=== PATIENT | male | born 1995 | race Caucasian/White ===

== ENCOUNTER → 2021-09-09 01:27 | Outpatient (CLI) | payer BC, SELFPAY ==
[2021-09-09 11:47] LABS: Influenza A QL RT-PCR Negative (Negative); Influenza B QL RT-PCR Negative (Negative); SARS-CoV-2 RNA PCR Negative
== END ==
PROVIDERS: PCP Family Medicine; Visit Provider Family Medicine
DX: R68.89 Other general symptoms and signs (principal); Z20.822 Contact with and (suspected) exposure to COVID-19
CPT/HCPCS: 87502; C9803; U0003; U0005

== ENCOUNTER 2021-11-04 11:46 | Emergency (ER) | payer BC, SELFPAY ==
--- NOTE | 2021-11-04 12:02 | ED.FEVER ---
HPI - Fever General Chief Complaint: Fever Stated Complaint: fever Time Seen by Provider: 11/04/21 12:02 Source: patient and RN notes reviewed Mode of arrival: ambulatory Limitations: no limitations History of Present Illness HPI Narrative: 26-year-old COVID-positive male presented for complaint of fever, cough and decreased focus after testing positive for COVID last night. Endorses his symptoms started yesterday. Today fever of 104 at home, nausea. He is not boosted for COVID. He has not taken anything for his fever. He denies shortness of breath, wheezing, vomiting or diarrhea. States he contacted his PCP who sent Rx Paxlovid which he has not started. Related Data Allergies Allergy/AdvReac Type Severity Reaction Status Date / Time No Known Allergies Allergy Verified 11/04/21 12:10 Review of Systems Review of Systems: CONSTITUTIONAL: Endorses malaise, chills, sweats, fever EYES: Denies visual changes, redness, or discharge ENT: Reports rhinorrhea, congestion, sinus pain CARDIOVASCULAR: Denies chest pain, palpitations, edema RESPIRATORY: Reports cough, post nasal drainage. Denies dyspnea GASTROINTESTINAL: Denies abdominal pain, vomiting, diarrhea SKIN: Denies rash or itching MUSCULOSKELETAL: Endorses myalgia PMFSH Family History Family History Mother , Age 56 Price's disease Social History Social History Tobacco type: smokeless tobacco Smokeless tobacco user: chewing tobacco Second hand tobacco smoke exposure: No Alcohol intake: current Alcohol use details: Drinks about 1-2 Beers a month Substance use: never Exam Narrative: GENERAL: Ill-appearing, nontoxic EYES: conjunctivae clear ENT: Mucous membranes moist. TM pearly delaney with dull light reflex bilaterally; no tragal tenderness. CHEST: Clear to auscultation, breath sounds equal. No wheezing, rhonchi, rales, or stridor. No respiratory distress, speaks in full sentences. HEART: Regular rate and rhythm. No murmur heard. SKIN: Warm, dry, no rash. NEURO: Alert and oriented x3. PSYCH: Normal mood and affect Course Course Emergency Course: Patient is aware of diagnosis, understands and agrees to treatment plan. Anticipatory guidance given. Patient agrees to follow-up as directed and is aware of reasons to seek care at the emergency department. Portions of this record may have been created with voice recognition software Level of Care: Express Care Visit Vital Signs Vital signs: Vital Signs Temperature 104.8 F H 11/04/21 12:06 Pulse Rate 106 H 11/04/21 12:06 Respiratory Rate 24 H 11/04/21 12:06 Blood Pressure 125/66 11/04/21 12:06 Pulse Oximetry 100 11/04/21 12:06 Oxygen Delivery Room Air 11/04/21 12:06 Temperature 104.5 F H 11/04/21 12:38 Pulse Rate 106 H 11/04/21 12:06 Respiratory Rate 24 H 11/04/21 12:06 Blood Pressure 125/66 11/04/21 12:06 Pulse Oximetry 100 11/04/21 12:06 Oxygen Delivery Room Air 11/04/21 12:06 reviewed MDM - Fever MDM Narrative Medical decision making narrative: Pt is positive for covid, has Rx for Paxlovid. Motrin and Tylenol give for fever. Pt reassessed, temp improved to 100.7, pt reports improvement. Advised supportive measures and signs/symptoms to go to the ER. Pt is stable and appropriate for outpt treatment and f/u. Differential Diagnosis Differential diagnosis: Likely viral infection Discharge Plan Discharge Clinical Impression: Viral infection Patient Disposition: Home, Self-Care Condition: Stable Instructions: COVID-19 (Coronavirus Disease 2019) (ED) Additional Instructions: You tested positive for covid at home The following recommendations have been made by the CDC and local Health Departments, regarding COVID-19: -Those individuals with mild cases of COVID-19 can generally be discontinued from isolation 5
[2021-11-04 12:06] VITALS: BP 125/66; PULSE 106; RESP 24; TEMP 40.4; O2SAT 100
[2021-11-04] MEDS: IBUPROFEN 400 MG TABLET 800 MG PO (12:13)
[2021-11-04] MEDS: ACETAMINOPHEN 500 MG TABLET 1000 MG PO (12:13)
[2021-11-04 12:38] VITALS: TEMP 40.3
[2021-11-04 13:23] VITALS: BP 117/75; PULSE 100; RESP 18; TEMP 38.2; O2SAT 100
[2021-11-04 13:26] VITALS: TEMP 38.2
== END 2021-11-04 13:40 | disposition home or self-care (01) ==
PROVIDERS: Emergency Provider Nurse Practitioner Family; PCP Family Medicine
DX: B34.9 Viral infection, unspecified (principal); F17.220 Nicotine dependence, chewing tobacco, uncomplicated
CPT/HCPCS: 99213; A9270; G0463

== ENCOUNTER 2022-02-12 14:00 | Outpatient (CLI) | payer BC, SELFPAY ==
[2022-02-12 15:10] LABS: SARS-CoV-2 RNA PCR Negative
== END 2022-02-12 14:01 | disposition home or self-care (01) ==
LOC: ANHLAB 14:02
PROVIDERS: PCP Family Medicine; Visit Provider Family Medicine
DX: R68.89 Other general symptoms and signs (principal); Z20.822 Contact with and (suspected) exposure to COVID-19
CPT/HCPCS: U0003; U0005

== ENCOUNTER 2022-12-11 08:46 | Outpatient (CLI) | payer BC, SELFPAY ==
[2022-12-11 17:06] LABS: Basophils Absolute Auto 0.1 K/mm3 (0.0-0.1); Basophils Percent Auto 0.8 % (0.2-1.2); Eosinophils Absolute Auto 0.5 K/mm3 (0-0.3); Eosinophils Percent Auto 5.9 % (0-4.4); Hematocrit 47.9 % (42.0-52.0); Hemoglobin 15.5 g/dL (14.0-18.0); Immature Granulocyte Absolute 0.03 K/mm3 (0.00-0.031); Immature Granulocyte Percent A 0.3 % (0-0.5); Lymphocytes Absolute Auto 2.07 K/mm3 (0.9-3.2); Mean Corpuscular HGB Conc 32.4 g/dl (32-36); Mean Corpuscular Hemoglobin 28.5 pg (26-34); Mean Corpuscular Volume 88.1 fl (80-100); Monocytes Absolute Auto 0.7 K/mm3 (0.1-0.6); Monocytes Percent Auto 7.8 % (2.6-8.5); Neutrophils Absolute Auto 5.3 K/mm3 (1.3-6.7); Neutrophils Percent Auto 61.2 % (45.5-73.1); Platelet Count Result 258 k/mm3 (150-375); Red Blood Count 5.44 M/mm3 (4.6-6.20); Red Cell Distribution Width 12.5 % (11.5-14.5); White Blood Count 8.6 K/mm3 (4.5-10.0)
[2022-12-11 17:14] LABS: Alanine Aminotransferase 26 U/L (6-50); Albumin Level 4.5 g/dL (3.5-5.1); Alkaline Phosphatase 64 U/L (38-126); Anion Gap 3 mmol/L (8-16); Aspartate Amino Transferase 36 U/L (17-59); Bilirubin,Total 0.5 mg/dL (0.2-1.3); Blood Urea Nitrogen 11 mg/dL (9-20); Calcium 9.6 mg/dL (8.4-10.2); Carbon Dioxide 33 mmol/L (22-30); Chloride 100 mmol/L (98-107); Estimated Glomerular Filt Rate > 60; Glucose 73 mg/dL (65-110); Potassium 4.7 mmol/L (3.4-5.0); Sodium 136 mmol/L (137-145)
== END 2022-12-11 08:47 | disposition home or self-care (01) ==
LOC: ANHGOSHLAB 08:47
PROVIDERS: PCP Family Medicine; Visit Provider Family Medicine
DX: R53.83 Other fatigue (principal); Z13.228 Encounter for screening for other metabolic disorders
CPT/HCPCS: 36415; 80053; 85025

== ENCOUNTER 2024-10-29 18:09 | Emergency (ER) | payer BC, SELFPAY ==
--- NOTE | ~2024-10-29 | XR_ITS ---
XR forearm LT 2V Ordering provider: CARLA Romero History: . struck by tree branch today . Comparison: None. FINDINGS: BONES: No acute fracture or dislocation. JOINT SPACES: Normal. SOFT TISSUES: Normal. IMPRESSION: No acute osseous abnormality left forearm. Reviewed, dictated and finalized at location A.
[2024-10-29 18:17] VITALS: BP 140/85; PULSE 100; RESP 16; TEMP 37.4; O2SAT 99
--- NOTE | 2024-10-29 18:47 | ED.UPPEXIN ---
HPI - Extremity Injury (Upper) General Chief Complaint: Extremity Injury, Upper Stated Complaint: INJURED L FOREARM Time Seen by Provider: 10/29/24 18:37 Source: patient and RN notes reviewed Mode of arrival: ambulatory Limitations: no limitations History of Present Illness HPI narrative: Patient presents today with an injury to his left forearm. Approximately 2 hours prior to arrival at home, a large tree branch fell and struck him in the left forearm. Reports some tingling to the wrist and hand. Currently rates his pain 7/10. No OTC treatment prior to arrival. Related Data Home Medications ?Medication ?Instructions ?Recorded ?Confirmed ?Last Taken ?Type bupropion HCl 300 mg 24 hr tablet, mg PO 05/24/24 05/24/24 Unknown History extended release Allergies Allergy/AdvReac Type Severity Reaction Status Date / Time No Known Allergies Allergy Verified 10/29/24 18:18 [facility] Family History Family History Mother , Age 56 [place]'s disease Social History Social History Smoking status: Never smoker Tobacco type: smokeless tobacco Smokeless tobacco user: chewing tobacco Second hand tobacco smoke exposure: No Alcohol intake: current Alcohol use details: Drinks about 1-2 Beers a month Substance use: never Lack of Transportation: No Lack of Food: Never True Current Housing: I Have Housing Concerned About Future Housing: No Difficulty Paying Gas/Electric Bills: No Difficulty Paying for Meds: No Currently Unemployed: No Education: Trade/Vocational Certificate Difficulty w/ Childcare or Family Care: No Comments At time of signature, I have reviewed and agree with nursing past medical, surgical, social and family history unless otherwise noted. Please see nursing chart for further information. There is no relevant family history pertinent to the presenting complaint Exam Narrative: GENERAL: Well-appearing, well-nourished, and in no acute distress. HEAD: Normocephalic, atraumatic. EYES: EOMI. No redness or drainage. Conjunctivae normal. ENT: Mucous membranes pink and moist. NECK: Normal AROM. CHEST: No respiratory distress. EXTREMITIES: Left arm: Tenderness to the radius with large hematoma to the mid forearm. No tenderness to entirety of the ulna. No tenderness to the hand. No snuffbox tenderness. No additional edema noted to the forearm, wrist, or hand. No deformity noted. Distal sensation intact in all 5 fingers. Capillary refill normal. Radial pulse normal. Pain to the forearm with range of motion of the wrist in all directions. SKIN: Warm, dry, no rash. Capillary refill normal. Normal skin turgor. NEURO: No focal deficits. Alert and oriented x3. Gait steady. PSYCH: Normal affect. No signs of depression or anxiety. Course Course Level of Care: Express Care Visit Vital Signs Vital signs: Vital Signs Temperature 99.3 F 10/29/24 18:17 Pulse Rate 100 10/29/24 18:17 Respiratory Rate 16 10/29/24 18:17 Blood Pressure 140/85 10/29/24 18:17 Pulse Oximetry 99 10/29/24 18:17 Temperature 99.3 F 10/29/24 18:17 Pulse Rate 100 10/29/24 18:17 Respiratory Rate 16 10/29/24 18:17 Blood Pressure 140/85 10/29/24 18:17 Pulse Oximetry 99 10/29/24 18:17 Reviewed MDM - Extremity Injury (Upper) MDM Narrative Medical decision making narrative: 29-year-old male patient presents today after tree limb fell on his forearm 2 hours prior to arrival causing a large hematoma. He does report some tingling to the hand. X-ray is negative for acute findings. Vital signs stable. Recommend ice and NSAIDs. 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 Anticipatory. Differential Diagnosis Differential diagnosis: Likely other (Forearm fracture, hematoma) Imaging Data Radiologist's impression: ITS Impressions Forearm X-Ray 10/29/24 18:38 IMPRESSION: No acute osseous abnormality left forearm. Critical Care Time Critical Care Time Critical Care Time: No Discharge Plan Discharge Clinical Impression: Traumatic hematoma of left forearm Patient Disposition: Home Condition: Stable Instructions: Hematoma (ED) Additional Instructions: Your x-ray is negative today. Apply ice and take anti-inflammatories such as Aleve or ibuprofen to help with your pain. Rest and elevate the arm as well. Follow-up with your PCP in 1 week if symptoms are not improving. Your blood pressure was elevated above 120/80 today at Urgent Care. This puts you above the threshold for follow up. Please schedule a followup visit with your personal physician as soon as possible, for further evaluation and treatment. Even blood pressure exceeding 120/80 may indicate pre-hypertension. Patient Language: [place] Prescriptions: No Action bupropion HCl 300 mg tablet extended release 24 hr PO Follow-up/Referrals: Alvina Monzon, [facility] [Primary Care Provider] - Stand Alone Forms: Work/School Release IP Time of Disposition: 18:54
== END 2024-10-29 18:56 | disposition home or self-care (01) ==
PROVIDERS: Emergency Provider Nurse Practitioner; PCP Clinical Nurse Specialist
DX: S50.12XA Contusion of left forearm, initial encounter (principal); W20.8XXA Other cause of strike by thrown, projected or falling object, initial encounter; F17.220 Nicotine dependence, chewing tobacco, uncomplicated
CPT/HCPCS: 73090; 99213; G0463